=== PATIENT | female | born 1985 | race Caucasian/White ===

== ENCOUNTER 2017-08-30 17:45 | Emergency (ER) | payer OTHER ==
[~2017-08-30] VITALS: Ht 154.9 cm; Wt 58.0 kg
[2017-08-30] MEDS ORDERED: ACETAMINOPHEN 325MG TABLET PO ONE (21:45)
[2017-08-30 22:05] VITALS: BP 111/63
== END 2017-08-30 22:07 | disposition home or self-care (01) ==
LOC: ER 17:45
DX: O99.511 Diseases of the respiratory system complicating pregnancy, first trimester (principal); J02.9 Acute pharyngitis, unspecified; Z3A.13 13 weeks gestation of pregnancy
CPT/HCPCS: 99283